=== PATIENT | female | born 1950 | race Caucasian/White ===

== ENCOUNTER → 2019-05-12 | Outpatient (CLI) | payer OTHER ==
[~2019-05-12] MED LIST: ASPIRIN325 PO; ASPIRIN81 M2 PO; ATENOLOL 50 MG50 M1 PO; ATENOLOL 50MG T50 M1 PO; ATORVASTATIN CA10 MG PO; BUSPIRONE HCL10 MG PO; BUTALB-APAP-CA1 EACH PO; CIPRO250 M1 PO; CIPRO500 MG PO; COMPAZINE10 M1 PO; COMPAZINE10 MG PO; DEPAKOTE 250MG250 MG PO; DIAZEPAM 5 MG5 M1 PO; DIAZIDE PO; DILAUDID 4 MG TA4 M1 PO; DILAUDID4 MG PO; DOXYCYCLINE 10100 M1 PO; EXELON1 EAC1 TRANSDERM; FELDENE20 MG PO; FIORICET 50-321 EACH PO; IBUPROFEN 600600 M1 PO; INTRATHECAL MED; LEVOTHROID; LEVOTHYROXIN0.112 M1 PO; LIPITOR10 MG PO; MECLIZINE HCL25 M1 PO; MINERAL OIL; MOVANTIK25 MG PO; MULTIVITAMINS PO; NEURONTIN 300M300 M2 PO; NORVASC 5 MG TAB5 MG PO; PERCOCET 10-321 EACH PO; POTASSIUM; PREDNISOLONE ACE5 ML OPHTHALMIC; PROZAC PO; PROZAC40 MG PO; REMERON15 MG PO; SENNA8.6 MG PO; SIMETHICONE1 ML PO; TRIAMTERENE-HC1 EAC1 PO; TYLENOL EXTRA500 MG PO; VESICARE10 M1 PO; VITAMIN D35000 UNI1 PO; VITAMINC500 PO; ZYPREXA5 MG PO; [UNRECOGNIZED DRUG - REMARK]
[2019-05-12 11:52] VITALS: BP 153/88
--- NOTE | 2019-05-12 12:11 | NUR ---
Pain Clinic Assessment: 1. History of Osteoarthritis: History of Rheumatoid Arthritis: 2. Height: ft. in. cm. Weight: lb. oz. kg. Patient's BMI: 3. Vital Signs: BP: 153/88 Pulse: 84 Resp: 14 Temp: 02 Sat: 94 ECG Mon: 4. Pain Intensity: 8 5. Fall Risk: Dizziness: N Needs help standing or walking: Y Fallen in the last 3 months: N Fall risk comments: 6. Patient on Blood Thinner: None 7. History of Hypertension: 8. Opioid Therapy greater than 6 weeks: Opiate Contract Signed: 9. Risk Assessment Tool Provided: 10. Functional Assessment Tool: 11. Recreational Drug Use: Never Drug Type: Tobacco Use: Former Smoker Tobacco Type: Amount or Packs/day: How Many Years: Alcohol Use: No Frequency: Quant:
--- NOTE | 2019-05-20 17:25 | HPC ---
[facility] [place] [address] PAIN MANAGEMENT CONSULTATION Name: LENY GONZALES Room #: REG [facility] M..#: [id number] Admission: 05/12/19 ������������������ Attend Phys: Blayne Roa MD Discharge: ������������������ Date of : 48 Report #: [id number] THIS REPORT FOR: //name// CC: CARROLL Roa DATE OF SERVICE: 05/12/2019 CHIEF COMPLAINT: Trigeminal neuralgia, chronic and intrathecal infusion pump for management of intractable pain. This is the first time I have seen the patient in over 3 years. She has declined dramatically over the last several years and has been living in a facility outside [facility], in [place]. She has declined both physically and mentally. I have agreed to be her prescribing physician for medications in the intrathecal pump, however I felt it necessary to have a [id number] meeting with her in order to continue to provide this for her. She was transported today to our clinic by a truck driver instructor and there is no additional staff or family here to corroborate. She is markedly debilitated. She is in a wheelchair. She recognized me and called me by name, but clearly there is evidence of significant dementia. Her records suggest that she suffered anoxic brain damage at some time, I do not have history of this, but believe that she was declining when I saw her in 2014. This may have occurred earlier. Other medical problems include hyperlipidemia. She has a history of major depressive disorder and an unspecified dementia with behavioral disturbance. In the past, she was diagnosed with personality disorder. I began seeing her because of her intrathecal pump, which was placed elsewhere. It provides treatment for trigeminal neuralgia which was severe and incapacitating. She is unable to give me any significant history today other than response to my questions regarding pain. I have asked her if she has pain and she says she has none. She has requested repeatedly since her arrival to the clinic to go home. I have reviewed what records I have available to me dated 05/12/2019 from [facility]. MEDICATIONS: Listed include aspirin, stool softener, buspirone, Diproex sodium, Cymbalta, Exelon patch, gabapentin, levothyroxine, melatonin, MiraLax, Movantik, prednisolone, Remeron, Robitussin, senna, simethicone, Tylenol, Zyprexa. ALLERGIES: PROMETHAZINE, SULFA, PENICILLIN, VERSED AND ZOSYN. PAST MEDICAL HISTORY: As cited above. [facility] [address] [place] [address] PAIN MANAGEMENT CONSULTATION Name: LENY GONZALES Room #: REG [facility] Karan#: [id number] Admission: 05/12/19 ������������������ Attend Phys: Blayne Roa MD Discharge: ������������������ Date of : 48 Report #: [id number] REVIEW OF SYSTEMS: Unable to obtain thoroughly. She denies sleep disturbance, pain, nausea, vomiting, and anorexia. She denies constipation. Again, she is a poor historian. PQRS review was completed by our staff. She has some history of osteoarthritis. Her BMI was not measured as she was unable to stand from her wheelchair or unwilling. She appears to be in the range of 20-30 and is not overly obese. Her pain intensity reported at 0 at times and other times at 8. She is clearly a fall risk. She is on no blood thinners. She is not treated for hypertension. She receives no opioid medication. She does not use tobacco nor has she used any alcohol in the facility. Further physical exam, the patient was pleasant but confused. Pupils demonstrate some anisocoria. There is a cataract or scar in the lens of the right eye. Pupils react to light. Mucous membranes are moist. She is edentulous. She has no allodynia on the facial distribution. Previously, she complained of pain of trigeminal neuralgia. There does not appear to be any discomfort. No tenderness along the temporomandibular joint. She could open and close her jaw without too much discomfort. Her chest is clear. Her cardiac rhythm was regular. I could not appreciate a murmur. Examination of the abdomen is soft. The pump is in the right lower quadrant and nontender. She has tenderness throughout the thoracic and lumbar spine. She was unable to stand at my request. IMPRESSION: 1. Chronic intractable pain with trigeminal neuralgia, which we have continued with intrathecal therapy. 2. Dementia, unspecified. 3. History of hypertension. 4. History of gastroesophageal reflux disease. 5. Previous anxiety and depression disorder. 6. Significant debility. I interrogated her intrathecal pump. Information shows that her next refill is scheduled for 11/10/2019. She has clonidine and fentanyl infusion, which is her same medication from previous. Her dose is clonidine 149 mcg and fentanyl 74 mcg. Clonidine is the lead drug. It is a 40 mL pump. The estimated replacement date is 04/2022. Thirty-seven months we will continue to keep an eye on this while managing her intrathecal pump. Because of her dementia and her lack of pain complaints, I felt it reasonable to decrease her infusion by 10%. Pump adjustment was made. We will communicate back with her infusion provider ALEXANDR and see her back in the pain clinic yearly. [facility] [address] [place] [address] PAIN MANAGEMENT CONSULTATION Name: LENY GONZALES Room #: REG [facility] Russo#: [id number] Admission: 05/12/19 ������������������ Attend Phys: Blayne Roa MD Discharge: ������������������ Date of : 48 Report #: [id number] It is burdensome for her to be transferred all the way to [place]. I will try not to see her unless necessary. ��������������������������������������������� <ELECTRONICALLY SIGNED> ���������������������������������������� By: Blayne Roa MD ��������������������������������������������� 05/20/19 1725 [id number] Blayne Roa MD /nt
== END ==
LOC: PAIN 06:48
DX: G50.0 Trigeminal neuralgia (principal); G89.4 Chronic pain syndrome; F03.90 Unspecified dementia, unspecified severity, without behavioral disturbance, psychotic disturbance, mood disturbance, and anxiety; I10 Essential (primary) hypertension; K21.9 Gastro-esophageal reflux disease without esophagitis; F41.9 Anxiety disorder, unspecified; F32.9 Major depressive disorder, single episode, unspecified; R53.81 Other malaise; Z79.899 Other long term (current) drug therapy

== ENCOUNTER → 2021-05-09 | Outpatient (CLI) | payer OTHER ==
[~2021-05-09] MED LIST changes: +AKWA TEARS EYE15 ML OPHTHALMIC; -DEPAKOTE 250MG250 MG PO; +DEPAKOTE SPRIN125 MG PO; +DRIZALMA SPRINK60 MG PO; +DULCOLAX10 MG RECTAL; +LEVOTHYROXINE50 MC1 PO; +PRED FORTE 1% EY5 M1 OPHTHALMIC
[2021-05-09 10:33] VITALS: BP 124/74
--- NOTE | 2021-05-09 10:51 | NUR ---
Pain Clinic Assessment: 1. History of Osteoarthritis: History of Rheumatoid Arthritis: 2. Height: ft. in. cm. Weight: lb. oz. kg. Patient's BMI: 3. Vital Signs: BP: 124/74 Pulse: 84 Resp: 14 Temp: 02 Sat: 93 ECG Mon: 4. Pain Intensity: 0 5. Fall Risk: Dizziness: N Needs help standing or walking: Y Fallen in the last 3 months: N Fall risk comments: 6. Patient on Blood Thinner: None 7. History of Hypertension: Y 8. Opioid Therapy greater than 6 weeks: Opiate Contract Signed: 9. Risk Assessment Tool Provided: 10. Functional Assessment Tool: 11. Recreational Drug Use: Never Drug Type: Tobacco Use: Former Smoker Tobacco Type: Amount or Packs/day: How Many Years: Alcohol Use: No Frequency: Quant:
== END | disposition home or self-care (01) ==
LOC: PAIN 07:18
PROVIDERS: ATTEND Anesthesiology Pain Medicine
DX: Z45.1 Encounter for adjustment and management of infusion pump (principal); Z86.69 Personal history of other diseases of the nervous system and sense organs; G89.29 Other chronic pain; F03.90 Unspecified dementia, unspecified severity, without behavioral disturbance, psychotic disturbance, mood disturbance, and anxiety; I10 Essential (primary) hypertension; Z98.890 Other specified postprocedural states; Z79.899 Other long term (current) drug therapy; Z87.891 Personal history of nicotine dependence; Z88.0 Allergy status to penicillin; Z88.2 Allergy status to sulfonamides